=== PATIENT | female | born 1950 | race Caucasian/White ===

== ENCOUNTER 2017-09-08 09:14 | Observation (INO) | payer SELFPAY ==
[2017-09-08 10:04] LABS: BASO % 0.7 % (0.0-2.0); EOS # 0.1 K/uL (0.0-0.7); EOS % 1.3 % (0.0-4.0); HEMATOCRIT 39.9 % (34.0-47.0); LYMPH # 2.6 K/uL (1.0-4.3); LYMPH % 45.1 % (20.0-40.0); MEAN CELL VOLUME 84.4 fl (81.0-99.0); MEAN CORPUSCULAR HEMOGLOBIN 27.7 pg (27.0-31.0); MEAN CORPUSCULAR HGB CONC 32.8 g/dL (33.0-37.0); MEAN PLATELET VOLUME 9.7 fl (7.2-11.7); MONO # 0.5 K/uL (0.0-0.8); MONO % 8.7 % (0.0-10.0); NEUT # 2.6 K/uL (1.8-7.0); NEUT % 44.2 % (50.0-75.0); NRBC % 0.1 % (0.0-0.0); RED CELL DISTRIBUTION WIDTH 12.9 % (11.5-14.5); WHITE BLOOD COUNT 5.8 K/uL (4.8-10.8)
[2017-09-08 10:15] LABS: ALB/GLOB RATIO 1.4 (1.0-2.1); ALKALINE PHOSPHATASE 65 U/L (38-126); ALT/SGPT 34 U/L (9-52); AST/SGOT 17 U/L (14-36); BILIRUBIN,TOTAL 0.2 mg/dl (0.2-1.3); BLOOD UREA NITROGEN 17 mg/dl (7-17); CALCIUM 9.1 mg/dL (8.4-10.2); CARBON DIOXIDE 24 mmol/L (22-30); CHLORIDE 107 mmol/L (98-107); CHOLESTEROL 170 mg/dL (0-199); GFR AFRICAN-AMERICAN > 60; GLUCOSE,RANDOM 115 mg/dL (65-105); PARTIAL THROMBOPLASTIN TIME 28.3 Seconds (25.6-37.1); POTASSIUM 3.8 MMOL/L (3.6-5.0); SODIUM 141 mmol/l (132-148); TOTAL PROTEIN 6.8 G/DL (6.3-8.2)
--- NOTE | 2017-09-08 10:16 | CT ---
PROCEDURE: CT HEAD WITHOUT CONTRAST. HISTORY: code stroke COMPARISON: None available. TECHNIQUE: Axial computed tomography images were obtained through the head/brain without intravenous contrast. Radiation dose: Total exam DLP = 878.54 mGy-cm. This CT exam was performed using one or more of the following dose reduction techniques: Automated exposure control, adjustment of the mA and/or kV according to patient size, and/or use of iterative reconstruction technique. FINDINGS: HEMORRHAGE: No intracranial hemorrhage. BRAIN: No mass effect or edema. No evidence of acute infarct. Moderate patchy and confluent periventricular, deep and subcortical white matter lucency consistent with age-related microvascular ischemic change. VENTRICLES: Unremarkable. No hydrocephalus. CALVARIUM: Unremarkable. PARANASAL SINUSES: Unremarkable as visualized. No significant inflammatory changes. MASTOID AIR CELLS: Unremarkable as visualized. No inflammatory changes. OTHER FINDINGS: "Empty sella "With flattening of pituitary along the floor of the sella turcica peer IMPRESSION: No evidence of acute infarct. No intracranial hemorrhage. The findings were discussed by telephone with Dr. Duque at 10:07 a.m. on 09/08/2017.
--- NOTE | 2017-09-08 10:35 | ED PDOC ---
HPI: General Adult Time Seen by Provider: 09/08/17 09:52 Chief Complaint (Nursing): Weakness/Neurological Deficit Chief Complaint (Provider): Weakness/Neurological deficit History Per: Patient History/Exam Limitations: no limitations Onset/Duration Of Symptoms: Days (x1) Additional Complaint(s): Elizabeth Rodrigez is a 66 year old female, with a past medical history of diabetes and hypertension, who presents to the emergency department stating she woke up with left sided headache and "funny feeling" on left side of her face and developed left upper extremity weakness onset 9am this morning. 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 Patient took Motrin and Enalapril for the headache. She denies any fever or chills. No further medical complaints. PMD: [facility] NIHSS Stroke Scale - Date/Time Evaluation Performed Date Performed: 09/08/17 Time Performed: 09:50 When Was NIHSS Performed: Code Stroke - How Severe is the Stroke Level of Consciousness: 0=Alert LOC to Questions: 0=Both comments correct LOC to commands: 0=Obeys both correctly Best Gaze: 0=Normal Visual: 0=No visual loss Facial: 0=Normal Motor Arm - Left: 0=No drift Motor Arm - Right: 0=No drift Motor Leg - Left: 0=No drift Motor Leg - Right: 0=No drift Limb Ataxia: 0=Absent Sensory: 0=Normal Best Language: 0=No aphasia Extinction & Inattention (Neglect): 0=Normal, no object rTPA Inclusion/Exclusion - Refusal of Treatment Patient Refused Treatment: No - Inclusion Criteria for Altepase Patient is 18 years or Older: Yes The Clinical Diagnosis of Ischemic Stroke That is Causing a Potentially Disabling Neurological Deficit: No Time of Onset is Well Established to be Less Than 270 Minute Before Treatment Would Begin: No Risk/Benefit Discussed With Patient/Family Member Present: No - Warning to TPA With Conditions Condition: Stroke Serevity Too Mild, Rapid Improvement Past Medical History Reviewed: Historical Data, Nursing Documentation, Vital Signs Vital Signs: Last Vital Signs Temp 98.3 F 09/09/17 19:44 Pulse 86 09/09/17 19:44 Resp 14 09/09/17 19:44 BP 122/75 09/09/17 19:44 Pulse Ox 100 09/09/17 19:44 - Medical History PMH: Diabetes, HTN - Family History Family History: States: Unknown Family Hx - Social History Ex-Smoker (has not smoked in the last 12 months): Yes Alcohol: Social Drugs: Denies - Home Medications Home Medications: Ambulatory Orders Medication Instructions Recorded Aspirin [Ecotrin] 81 mg PO DAILY 09/08/17 GlipiZIDE [Glucotrol] 10 mg PO BID 09/08/17 MetFORMIN [glucoPHAGE] 1,000 mg PO BID 09/08/17 Multivitamin [One-A-Day Essential] 1 tab PO DAILY 09/08/17 Lisinopril [Zestril] 40 mg PO DAILY #30 tab 09/09/17 Simvastatin 20 mg PO DAILY #30 tablet 09/09/17 hydroCHLOROthiazide [Hydrodiuril] 25 mg PO DAILY #30 tab 09/09/17 - Allergies Allergies/Adverse Reactions: Allergies Allergy/AdvReac Type Severity Reaction Status Date / Time No Known Allergies Allergy Verified 09/08/17 09:44 Review of Systems ROS Statement: Except As Marked, All Systems Reviewed And Found Negative Constitutional: Negative for: Fever, Chills Neurological: Positive for: Weakness (left upper extremity), Headache (left sided), Other ("funny feeling" left side of face) Physical Exam - Reviewed Nursing Documentation Reviewed: Yes Vital Signs Reviewed: Yes - Physical Exam Appears: Positive for: Well, Non-toxic, No Acute Distress Head Exam: Positive for: ATRAUMATIC, NORMAL INSPECTION, NORMOCEPHALIC Skin: Positive for: Normal Color, Warm, Dry Eye Exam: Positive for: EOMI, Normal appearance, PERRL Neck: Positive for: Normal, Painless ROM, Supple Cardiovascular/Chest: Positive for: Regular Rate, Rhythm. Negative for: Murmur Respiratory: Positive for: Normal Breath Sounds. Negative for: Respiratory Distress Gastrointestinal/Abdominal: Positive for: Normal Exam, Bowel Sounds, Soft. Negative for: Tenderness, Guarding, Rebound Back: Positive for: Normal Inspection. Negative for: L CVA Tenderness, R CVA Tenderness Extremity: Positive for: Normal ROM. Negative for: Deformity, Swelling Neurologic/Psych: Positive for: Alert, environmental department manager II-XII, Oriented (x3). Negative for : Motor/Sensory Deficits, Aphasia, Facial Droop - Laboratory Results Result Diagrams: 09/08/17 10:00 09/08/17 10:00 - ECG O2 Sat by Pulse Oximetry: 99 (RA) Pulse Ox Interpretation: Normal - Physician Consult Information Time Consulting Physican Contacted: 10:15 Physician Contacted: Cristina Chavez Outcome Of Conversation: Recommends admission for TIA. - Core Measure Core Measure Indicators: Code Stroke - Critical Care Total Time (In Min): 45 Medical Decision Making Medical Decision Making: Initial Impression: Headache, weakness Initial Plan: --Type and screen --EKG --Comp Metabolic Panel --Hemoglobin A1C --Lipid Panel --Troponin I --Vitamin D 25 --Erythrocyte Sediment rate --Chest portable [RAD] --C-Reactive protein --reevaluation [address] OTHER FINDINGS: Empty sella With flattening of pituitary along the floor of the sella turcica peer. IMPRESSION: No evidence of acute infarct. No intracranial hemorrhage. 1124 Chest x-ray IMPRESSION: No active disease Scribe Attestation: Documented by Waldo Lundy, acting as a scribe for Vilma Duque MD Provider Scribe Attestation: All medical record entries made by the Scribe were at my direction and personally dictated by me. I have reviewed the chart and agree that the record accurately reflects my personal performance of the history, physical exam, medical decision making, and the department course for this patient. I have also personally directed, reviewed, and agree with the discharge instructions and disposition. Disposition - Clinical Impression Clinical Impression: TIA (transient ischemic attack) - Patient ED Disposition Is Patient to be Admitted: Yes - Disposition Disposition Time: 10:51 Condition: FAIR - Pt Status Changed To: Hospital Disposition Of: Inpatient - Admit Certification Admit to Inpatient:: After my assessment, the patient will require hospitalization for at least two midnights. This is because of the severity of symptoms shown, intensity of services needed, and/or the medical risk in this patient being treated as an outpatient. - POA Present On Arrival: None
--- NOTE | 2017-09-08 11:26 | RAD ---
HISTORY: CVA COMPARISON: Chest radiograph dated 10/19/2008 FINDINGS: LUNGS: No active pulmonary disease. PLEURA: No significant pleural effusion identified, no pneumothorax apparent. CARDIOVASCULAR: Normal. OSSEOUS STRUCTURES: No significant abnormalities. VISUALIZED UPPER ABDOMEN: Normal. OTHER FINDINGS: None. IMPRESSION: No active disease.
[2017-09-08] MEDS ORDERED: EnalaprilAT 1.25 mg/ml Inj IVP STA (12:32)
--- NOTE | 2017-09-08 13:17 | CP.PCM.HP ---
History of Present Illness - History of Present Illness History of Present Illness: CC/HPI: Pt. is here today for evaluation of HTN and Headache. Pt. states that she was at the cardiology office and they took her blood pressure and told it was very high and sent to the E.D. Pt. also states that she woke up with a headache more than 3 hours ago in the back of the head for which she took Ibuprofen of which she does not know the dose but reports feeling better. Pt. states this is not the worst headache of life and she gets this dull headache often. Pt. also reports taking her blood pressure medication everyday including today. ROS: Pt. reports has some numbness on the left arm but no weakness. Pt. also denies any trauma, fall, injury, incontinence, visual disturbances, seizure, chest pain, dyspnea on waking up this morning. PMHx: HTN, Type II DM uncontrolled, PSHx: None FMHx: Mother and Father due to complication of Type II DM, Denies FMHx of cancer OBGYN- Postmenopausal LMP in mid 50's Social: TOB- no Drug- no ETOH- no Home Meds: ASA 81mg Lisinopril 10mg Glipizide 10mg Metformin 1000 BID RX: [facility] in [place] PMD: Dr. Mariajose Cruz at [facility] E.D. Course: [address] OTHER FINDINGS: Empty sella With flattening of pituitary along the floor of the sella turcica peer. IMPRESSION: No evidence of acute infarct. No intracranial hemorrhage. ASA-325mg Stat Initial Plan: --Type and screen --EKG --Comp Metabolic Panel --Hemoglobin A1C --Lipid Panel --Troponin I --Vitamin D 25 --Erythrocyte Sediment rate --Chest portable [RAD] --C-Reactive protein --reevaluation Chest x-ray IMPRESSION: No active disease Present on Admission - Present on Admission Any Indicators Present on Admission: No History of DVT/PE: No History of Uncontrolled Diabetes: No Urinary Catheter: No Decubitus Ulcer Present: No Review of Systems - Constitutional Constitutional: As Per HPI - EENT Eyes: absent: Blurred Vision, Change in Vision - Cardiovascular Cardiovascular: absent: Chest Pain, Chest Pain at Rest, Chest Pain with Activity , Claudication, Dyspnea - Respiratory Respiratory: absent: Dyspnea on Exertion - Gastrointestinal Gastrointestinal: absent: Heartburn, Hematemesis - Genitourinary Genitourinary: absent: Urinary Incontinence, Urinary Frequency - Menstruation Menstruation: Post Menopausal - Musculoskeletal Musculoskeletal: absent: Abnormal Gait, Arthralgias - Neurological Additional comments: Left arm numbness - Psychiatric Psychiatric: absent: Behavioral Changes, Irritability Past Patient History - Infectious Disease Hx of Infectious Diseases: None - Past Social History Alcohol: Social Drugs: Denies - CARDIAC Hx Hypertension: Yes - RENAL Hx Chronic Kidney Disease: Yes - ENDOCRINE/METABOLIC Hx Diabetes Mellitus Type 2: Yes - PSYCHIATRIC Hx Substance Use: No Meds Allergies/Adverse Reactions: Allergies Allergy/AdvReac Type Severity Reaction Status Date / Time No Known Allergies Allergy Verified 09/08/17 09:44 Physical Exam - Constitutional Appears: Non-toxic, No Acute Distress - Head Exam Head Exam: ATRAUMATIC, NORMOCEPHALIC - Eye Exam Eye Exam: Normal appearance, PERRL - ENT Exam ENT Exam: Mucous Membranes Moist - Neck Exam Neck exam: Positive for: Normal Inspection - Respiratory Exam Respiratory Exam: Clear to Auscultation Bilateral, NORMAL BREATHING PATTERN - Cardiovascular Exam Cardiovascular Exam: RRR, +S1, +S2 - GI/Abdominal Exam GI & Abdominal Exam: Soft. absent: Tenderness - Extremities Exam Extremities exam: Positive for: pedal edema. Negative for: calf tenderness - Neurological Exam Neurological exam: Alert, CN II-XII Intact, Oriented x3 - Expanded Neurological Exam Expanded Patient oriented to: person, place, time Speech: Fluid Speech Neuro motor strength exam: Left Upper Extremity: 4, Right Upper Extremity: 5, Left Lower Extremity: 4, Right Lower Extremity: 5 Coma Scale Eye Opening: SPONTANEOUS - Psychiatric Exam Psychiatric exam: Normal Affect, Normal Mood Results - Vital Signs Recent Vital Signs: Last Vital Signs Temp 98.4 F 09/08/17 12:40 Pulse 67 09/08/17 12:40 Resp 18 09/08/17 12:40 BP 189/92 H 09/08/17 12:45 Pulse Ox 100 09/08/17 12:40 - Labs Result Diagrams: 09/08/17 10:00 09/08/17 10:00 Labs: Laboratory Results - last 24 hr 09/08/17 09/08/17 09/08/17 10:00 10:00 10:00 WBC 5.8 RBC 4.72 Hgb 13.1 Hct 39.9 MCV 84.4 MCH 27.7 MCHC 32.8 L RDW 12.9 Plt Count 192 MPV 9.7 Neut % (Auto) 44.2 L Lymph % (Auto) 45.1 H Runnels % (Auto) 8.7 Eos % (Auto) 1.3 Baso % (Auto) 0.7 Neut # 2.6 Lymph # 2.6 Runnels # 0.5 Eos # 0.1 Baso # 0.0 PT 10.4 INR 0.9 APTT 28.3 Sodium 141 Potassium 3.8 Chloride 107 Carbon Dioxide 24 Anion Gap 14 BUN 17 Creatinine 0.5 L Est GFR ( Amer) > 60 Est GFR (Non-Af Amer) > 60 Random Glucose 115 H Calcium 9.1 Total Bilirubin 0.2 AST 17 ALT 34 Alkaline Phosphatase 65 Troponin I < 0.0120 Total Protein 6.8 Albumin 3.9 Globulin 2.9 Albumin/Globulin Ratio 1.4 Triglycerides 123 Cholesterol 170 LDL Cholesterol Direct 84 HDL Cholesterol 54 Blood Type Antibody Screen BBK History Checked 09/08/17 10:00 WBC RBC Hgb Hct MCV MCH MCHC RDW Plt Count MPV Neut % (Auto) Lymph % (Auto) Runnels % (Auto) Eos % (Auto) Baso % (Auto) Neut # Lymph # Runnels # Eos # Baso # PT INR APTT Sodium Potassium Chloride Carbon Dioxide Anion Gap BUN Creatinine Est GFR ( Amer) Est GFR (Non-Af Amer) Random Glucose Calcium Total Bilirubin AST ALT Alkaline Phosphatase Troponin I Total Protein Albumin Globulin Albumin/Globulin Ratio Triglycerides Cholesterol LDL Cholesterol Direct HDL Cholesterol Blood Type A POSITIVE Antibody Screen Negative BBK History Checked No verified bt Assessment & Plan - Assessment and Plan (Free Text) Assessment: 66 y.o. female with hx of Type II DM admitted for uncontrolled HTN and symptoms of TIA. Uncontrolled HTN- On chart reviewe from [facility] pt. has not been compliant on BP meds 1- Start patient on HCTHZ 25mg 2- Increase Lisnipril 10mg to 20mg TIA- Headache with numbness in left arm 1- Code stroke initiated 2- CT Head negative for hemorrhage, Headache onset more than 3 hrs not a candidate for TPA (pt. unable to pinpoint onset of headache) 3- Neuro consulted 4- Lipid profile obtained, LDL < 100 not a candidate for statin 5- Swallow screen passed 6- SCD now, lovenox in the morning 7- ASA 325mg given in the E.D. 8- PT/OT evaluation Type II DM- HbA1c > 8% 1- Resume Metformin 1000 mg PO BID 2- Resume Glipizide 10mg daily 3- Accucheck 4- Pt. is insulin naieve will hold Sliding scale insulin Diet 1- Heart healthy DVT prophylaxis 1- SCD 2- Lovenox 40mg sc start in the a.m.
--- NOTE | 2017-09-08 22:51 | CP.PCM.CON ---
History of Present Illness - History of Present Illness History of Present Illness: CC: Weakness/Neurological Deficit Elizabeth Rodrigez is a 66 year old female, with a past medical history of diabetes and hypertension, who presents to the emergency department stating she woke up with left sided headache and "funny feeling" on left side of her face and developed left upper extremity weakness onset 9am this morning. 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 Patient took Motrin and Enalapril for the headache. She denies any fever or chills. No further medical complaints. She borderline low vitamin D as I requested the ER to test for it. She is originally from [place] PMD: [facility] NIHSS Stroke Scale is ZERO - Date/Time Evaluation Performed Date Performed: 09/08/17 Time Performed: 09:50 When Was NIHSS Performed: Code Stroke - How Severe is the Stroke Level of Consciousness: 0=Alert LOC to Questions: 0=Both comments correct LOC to commands: 0=Obeys both correctly Best Gaze: 0=Normal Visual: 0=No visual loss Facial: 0=Normal Motor Arm - Left: 0=No drift Motor Arm - Right: 0=No drift Motor Leg - Left: 0=No drift Motor Leg - Right: 0=No drift Limb Ataxia: 0=Absent Sensory: 0=Normal Best Language: 0=No aphasia Extinction & Inattention (Neglect): 0=Normal, no object rTPA Inclusion/Exclusion - Refusal of Treatment Patient Refused Treatment: No - Inclusion Criteria for Altepase Patient is 18 years or Older: Yes The Clinical Diagnosis of Ischemic Stroke That is Causing a Potentially Disabling Neurological Deficit: No Time of Onset is Well Established to be Less Than 270 Minute Before Treatment Would Begin: No Risk/Benefit Discussed With Patient/Family Member Present: No - Warning to TPA With Conditions Condition: Stroke Serevity Too Mild, Rapid Improvement Past Medical History Reviewed: Historical Data, Nursing Documentation, Vital Signs Vital Signs: Last Vital Signs Temp 98.3 F 09/08/17 10:49 Pulse 65 09/08/17 12:03 Resp 19 09/08/17 12:03 BP 177/84 H 09/08/17 12:03 Pulse Ox 98 09/08/17 12:03 - Medical History PMH: Diabetes, HTN, High Cholesterol - Family History Family History: States: Unknown Family Hx - Social History Ex-Smoker (has not smoked in the last 12 months): Yes Alcohol: Social Drugs: Denies - Home Medications Home Medications: Ambulatory Orders Medication Instructions Recorded Aspirin [Ecotrin] 81 mg PO DAILY 09/08/17 Enalapril Maleate [Vasotec] 10 mg PO DAILY 09/08/17 GlipiZIDE [Glucotrol] 10 mg PO BID 09/08/17 Magnesium Oxide [Mag-Ox] 400 mg PO DAILY 09/08/17 MetFORMIN [glucoPHAGE] 1,000 mg PO BID 09/08/17 Multivitamin [One-A-Day Essential] 1 tab PO DAILY 09/08/17 - Allergies Allergies/Adverse Reactions: Allergies Allergy/AdvReac Type Severity Reaction Status Date / Time No Known Allergies Allergy Verified 09/08/17 09:44 Review of Systems ROS Statement: Except As Marked, All Systems Reviewed And Found Negative Constitutional: Negative for: Fever, Chills Neurological: Positive for: Weakness (left upper extremity), Headache (left sided), Other ("funny feeling" left side of face) Physical Exam - Reviewed Nursing Documentation Reviewed: Yes Vital Signs Reviewed: Yes - Physical Exam Appears: Positive for: Well, Non-toxic, No Acute Distress Head Exam: Positive for: ATRAUMATIC, NORMAL INSPECTION, NORMOCEPHALIC Skin: Positive for: Normal Color, Warm, Dry Eye Exam: Positive for: EOMI, Normal appearance, PERRL Neck: Positive for: Normal, Painless ROM, Supple Cardiovascular/Chest: Positive for: Regular Rate, Rhythm. Negative for: Murmur Respiratory: Positive for: Normal Breath Sounds. Negative for: Respiratory Distress Gastrointestinal/Abdominal: Positive for: Normal Exam, Bowel Sounds, Soft. Negative for: Tenderness, Guarding, Rebound Back: Positive for: Normal Inspection. Negative for: L CVA Tenderness, R CVA Tenderness Extremity: Positive for: Normal ROM. Negative for: Deformity, Swelling Neurologic/Psych: Positive for: Alert, general contractor II-XII, Oriented (x3). Negative for : Motor/Sensory Deficits, Aphasia, Facial Droop ECG O2 Sat by Pulse Oximetry: 99 (RA) Pulse Ox Interpretation: Normal - Physician Consult Information Time Consulting Physican Contacted: 10:15 Physician Contacted: Cristina Chavez Outcome Of Conversation: Recommends admission for TIA. - Core Measure Core Measure Indicators: Code Stroke - Critical Care Total Time (In Min): 45 Medical Decision Making Medical Decision Making: Initial Impression: Headache, weakness Initial Plan: --Type and screen --EKG --Comp Metabolic Panel --Hemoglobin A1C --Lipid Panel --Troponin I --Vitamin D 25 --Erythrocyte Sediment rate --Chest portable [RAD] --C-Reactive protein --reevaluation Head CT OTHER FINDINGS: Empty sella With flattening of pituitary along the floor of the sella turcica peer. IMPRESSION: No evidence of acute infarct. No intracranial hemorrhage. 1124 Chest x-ray IMPRESSION: No active disease Clinical Impression: TIA (transient ischemic attack) - Patient ED Disposition Is Patient to be Admitted: Yes - Disposition Disposition Time: 10:51 - Pt Status Changed To: Hospital Disposition Of: Inpatient - Admit Certification Admit to Inpatient:: After my assessment, the patient will require hospitalization for at least two midnights. This is because of the severity of symptoms shown, intensity of services needed, and/or the medical risk in this patient being treated as an outpatient. Past Patient History - Infectious Disease Hx of Infectious Diseases: None - Past Medical History & Family History Past Medical History?: Yes - Past Social History Alcohol: Social Drugs: Denies - CARDIAC Hx Hypertension: Yes - RENAL Hx Chronic Kidney Disease: Yes - ENDOCRINE/METABOLIC Hx Diabetes Mellitus Type 2: Yes - MUSCULOSKELETAL/RHEUMATOLOGICAL Hx Falls: No - PSYCHIATRIC Hx Substance Use: No - ANESTHESIA Hx Anesthesia: No Hx Anesthesia Reactions: No Meds Allergies/Adverse Reactions: Allergies Allergy/AdvReac Type Severity Reaction Status Date / Time No Known Allergies Allergy Verified 09/08/17 09:44 - Medications Medications: Current Medications Aspirin (Ecotrin) 81 mg PO DAILY [facility] Enalapril Maleate (Vasotec) 20 mg PO DAILY [facility] Enoxaparin Sodium (Lovenox) 40 mg SC DAILY [facility] PRN Reason: Protocol Glipizide (Glucotrol) 10 mg PO BID [facility] Last Admin: 09/08/17 17:19 Dose: Not Given Hydralazine HCl (Apresoline) 10 mg PO TID [facility] Last Admin: 09/08/17 21:58 Dose: 10 mg Hydrochlorothiazide (Hydrodiuril) 25 mg PO DAILY [facility] Last Admin: 09/08/17 14:45 Dose: 25 mg Metformin HCl (Glucophage) 1,000 mg PO BID [facility] Last Admin: 09/08/17 17:16 Dose: 1,000 mg Physical Exam - Neurological Exam Additional comments: Not in distress Mental Status: Normal exam, awake, alert, oriented, normal memory, normal cognition, fluent coherent speech Cranial Nerves II to XII: Normal EOEM Pupils are equal reactive to light No facial Asymmetry Normal swallowing Central Tongue Motor: Normal Tone, power and Muscle bulk DTR 0/4 allover Toes are down going by plantar stimulation Sensory: No deficits on the face or the extremities or the rest of the body Cerebellar: Normal FNT Results - Vital Signs Recent Vital Signs: Last Vital Signs Temp 98.4 F 09/08/17 19:57 Pulse 70 09/08/17 21:58 Resp 20 09/08/17 19:57 BP 196/83 H 09/08/17 21:58 Pulse Ox 99 09/08/17 19:57 - Labs Result Diagrams: 09/08/17 10:00 09/08/17 10:00 Labs: Laboratory Results - last 24 hr 09/08/17 09/08/17 09/08/17 10:00 10:00 10:00 WBC 5.8 RBC 4.72 Hgb 13.1 Hct 39.9 MCV 84.4 MCH 27.7 MCHC 32.8 L RDW 12.9 Plt Count 192 MPV 9.7 Neut % (Auto) 44.2 L Lymph % (Auto) 45.1 H Payne % (Auto) 8.7 Eos % (Auto) 1.3 Baso % (Auto) 0.7 Neut # 2.6 Lymph # 2.6 Payne # 0.5 Eos # 0.1 Baso # 0.0 ESR PT INR APTT Sodium 141 Potassium 3.8 Chloride 107 Carbon Dioxide 24 Anion Gap 14 BUN 17 Creatinine 0.5 L Est GFR ( Amer) > 60 Est GFR (Non-Af Amer) > 60 POC Glucose (mg/dL) Random Glucose 115 H Hemoglobin A1c 8.6 H Calcium 9.1 Total Bilirubin 0.2 AST 17 ALT 34 Alkaline Phosphatase 65 Troponin I < 0.0120 Total Protein 6.8 Albumin 3.9 Globulin 2.9 Albumin/Globulin Ratio 1.4 Triglycerides 123 Cholesterol 170 LDL Cholesterol Direct 84 HDL Cholesterol 54 25-OH Vitamin D Total Blood Type Blood Type Confirm Antibody Screen BBK History Checked 09/08/17 09/08/17 09/08/17 10:00 10:00 12:05 WBC RBC Hgb Hct MCV MCH MCHC RDW Plt Count MPV Neut % (Auto) Lymph % (Auto) Payne % (Auto) Eos % (Auto) Baso % (Auto) Neut # Lymph # Payne # Eos # Baso # ESR 11 PT 10.4 INR 0.9 APTT 28.3 Sodium Potassium Chloride Carbon Dioxide Anion Gap BUN Creatinine Est GFR ( Amer) Est GFR (Non-Af Amer) POC Glucose (mg/dL) Random Glucose Hemoglobin A1c Calcium Total Bilirubin AST ALT Alkaline Phosphatase Troponin I Total Protein Albumin Globulin Albumin/Globulin Ratio Triglycerides Cholesterol LDL Cholesterol Direct HDL Cholesterol 25-OH Vitamin D Total Blood Type A POSITIVE Blood Type Confirm Antibody Screen Negative BBK History Checked No verified bt 09/08/17 09/08/17 09/08/17 12:05 16:43 19:04 WBC RBC Hgb Hct MCV MCH MCHC RDW Plt Count MPV Neut % (Auto) Lymph % (Auto) Payne % (Auto) Eos % (Auto) Baso % (Auto) Neut # Lymph # Payne # Eos # Baso # ESR PT INR APTT Sodium Potassium Chloride Carbon Dioxide Anion Gap BUN Creatinine Est GFR ( Amer) Est GFR (Non-Af Amer) POC Glucose (mg/dL) 148 H Random Glucose Hemoglobin A1c Calcium Total Bilirubin AST ALT Alkaline Phosphatase Troponin I Total Protein Albumin Globulin Albumin/Globulin Ratio Triglycerides Cholesterol LDL Cholesterol Direct HDL Cholesterol 25-OH Vitamin D Total 32.0 Blood Type Blood Type Confirm A POSITIVE Antibody Screen BBK History Checked 09/08/17 09/08/17 19:04 22:38 WBC RBC Hgb Hct MCV MCH MCHC RDW Plt Count MPV Neut % (Auto) Lymph % (Auto) Payne % (Auto) Eos % (Auto) Baso % (Auto) Neut # Lymph # Payne # Eos # Baso # ESR PT INR APTT Sodium Potassium Chloride Carbon Dioxide Anion Gap BUN Creatinine Est GFR ( Amer) Est GFR (Non-Af Amer) POC Glucose (mg/dL) 162 H Random Glucose Hemoglobin A1c Calcium Total Bilirubin AST ALT Alkaline Phosphatase Troponin I < 0.0120 Total Protein Albumin Globulin Albumin/Globulin Ratio Triglycerides Cholesterol LDL Cholesterol Direct HDL Cholesterol 25-OH Vitamin D Total Blood Type Blood Type Confirm Antibody Screen BBK History Checked Assessment & Plan (1) TIA (transient ischemic attack) Status: Acute (2) HTN (hypertension) Assessment and Plan: This might be a major Factor in her Symptom, as it causes TIA, CVA, Cardiac attacks and other dysfunctions She has DM, High Lipid Profile, She is tested for her cardiac enzymes. Precautions for HTN and for Headache were explained to her and the food to avoid. No salt, no spices, no caffeine , no Ketchup, No Mustard, no Junk food, no MSG, waking up early and sleeping early Avoid alcohol as possible, she said she is advent and she doen't smoke or drink, but she likes many cups of Coffee, [place] Spices, Fried food Avoid stress. Status: Acute (3) Temporal arteritis Assessment and Plan: Due to severe Headache and her senior age, Temporal Arteritis is to be Ruled out. ESR and CRP are specific. She might need a temporal artery Biopsy of ESR and CRP are elevated. Ophthalmology consult will then be requested looking for eye fundus changes as Optic neuritis. TMJ Claudications and cramps in the area with Pain are highly prevalent in cases of Temporal Arteritis. Painful eye movements are prevalent. Treatment with IV Solumedrol or any Steroids will be started immediately. Patient doesn't have the full picture of Temporal Arteritis and I doubt she has it. Her headache looks more due to HTN and stress as she is worried about cooking her 2 Turkies for Thanksgiving Status: Acute (4) Seizures Assessment and Plan: Very Unlikely due to the prolonged duration of her symptoms. Status: Acute
--- NOTE | 2017-09-09 07:34 | CP.PCM.PN ---
Subjective - Date & Time of Evaluation Date of Evaluation: 09/09/17 Time of Evaluation: 07:25 Objective - Vital Signs/Intake and Output Vital Signs (last 24 hours): Temp Pulse Resp BP Pulse Ox 97.4 F L 70 18 186/78 H 98 09/09/17 05:11 09/09/17 05:11 09/09/17 05:11 09/09/17 05:11 09/09/17 05:11 - Medications Medications: Current Medications Aspirin (Ecotrin) 81 mg PO DAILY [facility] Enalapril Maleate (Vasotec) 20 mg PO DAILY [facility] Enoxaparin Sodium (Lovenox) 40 mg SC DAILY [facility] PRN Reason: Protocol Glipizide (Glucotrol) 10 mg PO BID [facility] Last Admin: 09/08/17 17:19 Dose: Not Given Hydralazine HCl (Apresoline) 10 mg PO TID [facility] Last Admin: 09/08/17 21:58 Dose: 10 mg Hydrochlorothiazide (Hydrodiuril) 25 mg PO DAILY [facility] Last Admin: 09/08/17 14:45 Dose: 25 mg Hydroxyzine HCl (Atarax) 10 mg PO PRN PRN Reason: Sleep Last Admin: 09/09/17 03:05 Dose: 10 mg Metformin HCl (Glucophage) 1,000 mg PO BID [facility] Last Admin: 09/08/17 17:16 Dose: 1,000 mg - Labs Labs: 09/08/17 10:00 09/08/17 10:00 PT 10.4 Seconds (9.8-13.1) 09/08/17 10:00 INR 0.9 (0.9-1.2) 09/08/17 10:00 APTT 28.3 Seconds (25.6-37.1) 09/08/17 10:00
--- NOTE | 2017-09-09 07:44 | CARD ---
APPROVED REPORT EKG Measurement Heart [id number] MI [id number] <Conclusion> Normal sinus rhythm Possible Left atrial enlargement Left ventricular hypertrophy Abnormal ECG
--- NOTE | 2017-09-09 07:52 | CARD ---
APPROVED REPORT EKG Measurement Heart [id number] <Conclusion> Normal sinus rhythm Possible Left atrial enlargement Left ventricular hypertrophy Abnormal ECG
[2017-09-09] MEDS ORDERED: Multivitamin With Minerals Tab PO SCH (09:00)
[2017-09-09] MEDS ORDERED: Enoxaparin 40 mg Syringe SC SCH (09:00)
[2017-09-09] MEDS ORDERED: Magnesium Oxide 400 mg Tab UD PO SCH (09:00)
--- NOTE | 2017-09-09 09:51 | CP.PCM.DIS ---
Provider - Provider Date of Admission: 09/08/17 10:51 Attending physician: Alicia Metz MD Primary care physician: [facility], Consults: Neurologist Dr. Chavez Time Spent in preparation of Discharge (in minutes): 30 Diagnosis - Discharge Diagnosis (1) HTN (hypertension) Status: Acute (2) TIA (transient ischemic attack) Status: Acute Hospital Course - Lab Results Lab Results: Most Recent Lab Values WBC 5.8 K/uL (4.8-10.8) 09/08/17 10:00 RBC 4.72 Mil/uL (3.80-5.20) 09/08/17 10:00 Hgb 13.1 g/dL (12.0-16.0) 09/08/17 10:00 Hct 39.9 % (34.0-47.0) 09/08/17 10:00 MCV 84.4 fl (81.0-99.0) 09/08/17 10:00 MCH 27.7 pg (27.0-31.0) 09/08/17 10:00 MCHC 32.8 g/dL (33.0-37.0) L 09/08/17 10:00 RDW 12.9 % (11.5-14.5) 09/08/17 10:00 Plt Count 192 K/uL (130-400) 09/08/17 10:00 MPV 9.7 fl (7.2-11.7) 09/08/17 10:00 Neut % (Auto) 44.2 % (50.0-75.0) L 09/08/17 10:00 Lymph % (Auto) 45.1 % (20.0-40.0) H 09/08/17 10:00 [place] % (Auto) 8.7 % (0.0-10.0) 09/08/17 10:00 Eos % (Auto) 1.3 % (0.0-4.0) 09/08/17 10:00 Baso % (Auto) 0.7 % (0.0-2.0) 09/08/17 10:00 Neut # 2.6 K/uL (1.8-7.0) 09/08/17 10:00 Lymph # 2.6 K/uL (1.0-4.3) 09/08/17 10:00 [place] # 0.5 K/uL (0.0-0.8) 09/08/17 10:00 Eos # 0.1 K/uL (0.0-0.7) 09/08/17 10:00 Baso # 0.0 K/uL (0.0-0.2) 09/08/17 10:00 ESR 11 mm/hr (0-30) 09/08/17 12:05 PT 10.4 Seconds (9.8-13.1) 09/08/17 10:00 INR 0.9 (0.9-1.2) 09/08/17 10:00 APTT 28.3 Seconds (25.6-37.1) 09/08/17 10:00 Sodium 141 mmol/l (132-148) 09/08/17 10:00 Potassium 3.8 MMOL/L (3.6-5.0) 09/08/17 10:00 Chloride 107 mmol/L (98-107) 09/08/17 10:00 Carbon Dioxide 24 mmol/L (22-30) 09/08/17 10:00 Anion Gap 14 (10-20) 09/08/17 10:00 BUN 17 mg/dl (7-17) 09/08/17 10:00 Creatinine 0.5 mg/dl (0.7-1.2) L 09/08/17 10:00 Est GFR ( Amer) > 60 09/08/17 10:00 Est GFR (Non-Af Amer) > 60 09/08/17 10:00 POC Glucose (mg/dL) 113 mg/dL (65-110) H 09/09/17 05:22 Random Glucose 115 mg/dL (65-105) H 09/08/17 10:00 Hemoglobin A1c 8.6 % (4.2-6.5) H 09/08/17 10:00 Calcium 9.1 mg/dL (8.4-10.2) 09/08/17 10:00 Total Bilirubin 0.2 mg/dl (0.2-1.3) 09/08/17 10:00 AST 17 U/L (14-36) 09/08/17 10:00 ALT 34 U/L (9-52) 09/08/17 10:00 Alkaline Phosphatase 65 U/L (38-126) 09/08/17 10:00 Troponin I < 0.0120 ng/mL (0.00-0.120) 09/09/17 02:46 C-Reactive Prot, Quant 0.8 mg/L (<8.0) 09/08/17 11:50 Total Protein 6.8 G/DL (6.3-8.2) 09/08/17 10:00 Albumin 3.9 g/dL (3.5-5.0) 09/08/17 10:00 Globulin 2.9 gm/dL (2.2-3.9) 09/08/17 10:00 Albumin/Globulin Ratio 1.4 (1.0-2.1) 09/08/17 10:00 Triglycerides 123 mg/DL (0-149) 09/08/17 10:00 Cholesterol 170 mg/dL (0-199) 09/08/17 10:00 LDL Cholesterol Direct 84 mg/dL (0-129) 09/08/17 10:00 HDL Cholesterol 54 MG/DL (30-70) 09/08/17 10:00 25-OH Vitamin D Total 32.0 NG/ML (30.0-100.0) 09/08/17 12:05 Blood Type A POSITIVE 09/08/17 10:00 Blood Type Confirm A POSITIVE 09/08/17 19:04 Antibody Screen Negative 09/08/17 10:00 BBK History Checked No verified bt 09/08/17 10:00 - Hospital Course Hospital Course: 66 yo female pmh uncontrolled HTN, HLD and DMII was found to have elevated BP 192/111 when she went to see online merchandising manager Dr. Fung. Pt reports she had headache and tingling sensation of left arm in the morning which resolved after taking motrin and enalapril. Pt was sent to ED and admitted for TIA workup. Head CT was negative for acute infarct/intracranial bleeding but shows empty sella w/ flattening of pituitary along the floor of sella turcica peer. EKG, CXR and troponin x 2 neg. Pt had brain MRI and carotid duplex US, both were negative. Pt is given rx for BMP to be done on 09/21/17. Pt has appointment with Dr. Ely on 09/15/17 at 4 pm. The discharge medications are as follows: Simvastatin 20 mg po qd Lisinopril 40 mg po qd HCTZ 25 mg po qd Aspirin 81 mg po qd Metformin 1000 mg po bid Glipizide 10 mg po bid multivitamin 1 tab po daily - Date & Time of H&P Date of H&P: 09/09/17 Time of H&P: 07:30 Discharge Exam - Head Exam Head Exam: ATRAUMATIC, NORMOCEPHALIC - Eye Exam Eye Exam: Normal appearance, PERRL - ENT Exam ENT Exam: Mucous Membranes Moist - Neck Exam Neck exam: Full Rom, Normal Inspection - Respiratory Exam Respiratory Exam: Clear to PA & Lateral, NORMAL BREATHING PATTERN. absent: Rales, Rhonchi - Cardiovascular Exam Cardiovascular Exam: REGULAR RHYTHM, RRR, +S1, +S2. absent: Gallop - GI/Abdominal Exam GI & Abdominal Exam: Normal Bowel Sounds, Soft. absent: Tenderness - Extremities Exam Extremities exam: normal capillary refill - Neurological Exam Neurological exam: Alert, CN II-XII Intact, Normal Gait, Oriented x3, Reflexes Normal - Psychiatric Exam Psychiatric exam: Normal Affect, Normal Mood Discharge Plan - Discharge Medications Prescriptions: hydroCHLOROthiazide [Hydrodiuril] 25 mg PO DAILY #30 tab Lisinopril [Zestril] 40 mg PO DAILY #30 tab Simvastatin 20 mg PO DAILY #30 tablet - Follow Up Plan Condition: FAIR Disposition: HOME/ ROUTINE Instructions: Transient Ischemic Attack (DC) Additional Instructions: Has appointment with Dr. Sultan Ely on 09/15/17 at 4 pm Referrals: FAMILY PROVIDER,NO [Family Provider] -
--- NOTE | 2017-09-09 15:33 | MRI ---
PROCEDURE: MRI BRAIN WITHOUT CONTRAST HISTORY: R/O CVA, TIA COMPARISON: Head CT without contrast 09/08/2017. TECHNIQUE: Multiplanar, multisequence MR images of the brain were obtained without intravenous contrast enhancement. FINDINGS: HEMORRHAGE: None DWI: No evidence of an acute or early subacute infarction. BRAIN PARENCHYMA: Diffuse cerebral atrophy and chronic microangiopathy are reiterated. No mass is identified or suspicious extra-axial fluid collection in the midline brain and appears diffusely unremarkable nevertheless. Posterior fossa contents remain unremarkable including the brainstem.No atrophy or chronic microvascular ischemic changes. Trace calcium seen at the posterior right basal ganglia versus possible cavernoma. VENTRICLES: Unremarkable. No hydrocephalus. CRANIUM: Unremarkable. ORBITS: Grossly unremarkable. PARANASAL SINUSES/MASTOIDS: Clear VASCULAR SYSTEM: Skull base flow voids intact. OTHER FINDINGS: None. IMPRESSION: 1. No definitive acute intracranial findings as discussed above. 2. Mild age related neuro degenerative changes are identified which appear age-appropriate. No signal change from prior CT dated 09/08/2017.
--- NOTE | 2017-09-09 16:35 | US ---
PROCEDURE: Bilateral duplex Doppler carotid arterial ultrasound HISTORY: R/O CVA COMPARISON: Not available TECHNIQUE: Ultrasound examination of the carotid and vertebral arteries was performed utilizing a linear array color Doppler transducer. FINDINGS: Right carotid artery: There is intimal thickening seen in the distal right CCA. There is minimal atheromatous plaque with calcification in the proximal right ICA. Peak systolic velocity measurements: CCA: 76.4 cm/sec ICA: 93.4 cm/sec ICA/CCA peak systolic velocity ratio: 1.2 Antegrade flow demonstrated in vertebral artery Left carotid artery: There is intimal thickening seen throughout the common carotid artery. There is no significant atheromatous plaque identified. Peak systolic velocity measurements: CCA: 93.7 cm/sec ICA: 90.1 cm/sec ICA/CCA peak systolic velocity ratio: 1.0 Antegrade flow demonstrated in vertebral artery IMPRESSION: No evidence of hemodynamically significant carotid arterial stenosis bilaterally (less than 50 percent).
[2017-09-09 19:44] VITALS: BP 122/75; PULSE 86; RESP 14; TEMP 98.3
--- NOTE | 2017-09-09 21:46 | CP.PCM.PN ---
Subjective - Date & Time of Evaluation Date of Evaluation: 09/09/17 Time of Evaluation: 21:00 - Subjective Subjective: Negative MRI Brain and Carotid Doppler: is also negative. D/C Home with CVA precautions and Cardiac precautions, treating DM, HTN, Repeated strokes. Objective - Vital Signs/Intake and Output Vital Signs (last 24 hours): Temp Pulse Resp BP Pulse Ox 98.3 F 86 14 122/75 100 09/09/17 19:44 09/09/17 19:44 09/09/17 19:44 09/09/17 19:44 09/09/17 19:44 - Medications Medications: Current Medications Aspirin (Ecotrin) 81 mg PO DAILY [facility] Last Admin: 09/09/17 08:50 Dose: 81 mg Atorvastatin Calcium (Lipitor) 20 mg PO DAILY [facility] Last Admin: 09/09/17 11:00 Dose: Not Given Enalapril Maleate (Vasotec) 20 mg PO DAILY [facility] Last Admin: 09/09/17 08:51 Dose: 20 mg Enoxaparin Sodium (Lovenox) 40 mg SC DAILY [facility] PRN Reason: Protocol Last Admin: 09/09/17 08:51 Dose: 40 mg Glipizide (Glucotrol) 10 mg PO BID [facility] Last Admin: 09/09/17 16:01 Dose: Not Given Hydrochlorothiazide (Hydrodiuril) 25 mg PO DAILY [facility] Last Admin: 09/09/17 08:51 Dose: 25 mg Hydroxyzine HCl (Atarax) 10 mg PO HS PRN PRN Reason: Sleep Last Admin: 09/09/17 03:05 Dose: 10 mg Metformin HCl (Glucophage) 1,000 mg PO BID [facility] Last Admin: 09/09/17 16:00 Dose: Not Given - Labs Labs: 09/08/17 10:00 09/08/17 10:00 PT 10.4 Seconds (9.8-13.1) 09/08/17 10:00 INR 0.9 (0.9-1.2) 09/08/17 10:00 APTT 28.3 Seconds (25.6-37.1) 09/08/17 10:00 Assessment and Plan (1) TIA (transient ischemic attack) Status: Acute (2) HTN (hypertension) Status: Acute (3) Temporal arteritis Status: Acute (4) Seizures Status: Acute
[2017-09-12 11:11] VITALS: O2SAT 99
== END 2017-09-09 21:55 | disposition home or self-care (01) ==
LOC: H.ER 09:14 → SUPCPDRO 09:14 → H.ERHOLD 10:51 → INTOOBSV 10:51 → H.TEL 12:26
PROVIDERS: ADMIT Family Medicine Geriatric Medicine; ATTEND Family Medicine Geriatric Medicine
DX: G45.9 Transient cerebral ischemic attack, unspecified (principal); Z91.19 Patient's noncompliance with other medical treatment and regimen; Z87.891 Personal history of nicotine dependence; Z83.3 Family history of diabetes mellitus; Z79.84 Long term (current) use of oral hypoglycemic drugs; Z79.82 Long term (current) use of aspirin; M31.6 Other giant cell arteritis; G40.909 Epilepsy, unspecified, not intractable, without status epilepticus; I16.1 Hypertensive emergency; E11.65 Type 2 diabetes mellitus with hyperglycemia; I10 Essential (primary) hypertension; E78.00 Pure hypercholesterolemia, unspecified
CPT/HCPCS: 36415; 70450; 70551; 71010; 80053; 80061; 82306; 82948; 83036; 84484; 85025; 85610; 85651; 85730; 86140; 86850; 86900; 93005; 93880; 97161; 99285; G0378; G8978; G8979; G8980; G8987; G8988; G8989; J0360; J1650; Q0177